=== PATIENT | female | born 1945 | race Caucasian/White ===

== ENCOUNTER 2018-03-29 09:12 | Emergency (ER) | payer OTHER ==
[~2018-03-29] VITALS: Ht 165.1 cm; Wt 104.3 kg
--- NOTE | ~2018-03-29 | EKG ---
[place] [address] [facility] [place] [address] ELECTROCARDIOGRAM REPORT Name: JAE CHAVEZ [facility] [id number] Admission: 03/29/18 Attend Phys: Discharge: 03/29/18 Date of : 45 Report #: [id number] THIS REPORT FOR: //name// [facility] ED Test Date: 2018-03-29 Test Time: 09:58:21 Pat Name: JAE CHAVEZ Department: Room: Gender: F Program Developer: Last CHIRINOS : 1945 Requested By: Agustín Juarez Order Number: [id number] MD: Lion Sweeney Measurements Intervals [place] Rate: 74 P: -12 VT: 199 QRS: -35 QRSD: 98 T: 136 QT: 410 QTc: 455 Interpretive Statements Sinus rhythm LVH with secondary repolarization abnormality Inferior infarct, old Anteroseptal infarct, possibly acute No previous ECG available for comparison Electronically Signed On 03-29-2018 11:37:53 CDT by Lion Sweeney [email or web address] <ELECTRONICALLY SIGNED> By: Lion Sweeney MD 03/29/18 [id number] Lion Sweeney MD /YANNICK
[2018-03-29 10:49] LABS: ABSOLUTE NEUTROPHILS 12.3 thou/uL (1.4-8.2); BASOPHILS 0.2 % (0.0-2.0); EOSINOPHILS 0.1 % (0.0-3.0); HEMATOCRIT 42.1 % (37.0-47.0); HEMOGLOBIN 14.2 gm/dL (12.0-15.0); LYMPHOCYTES 6.5 % (24.0-44.0); MCH 30.7 pg (26.0-34.0); MCHC 33.7 g/dL (28.0-37.0); MCV 91.2 fL (80.0-100.0); MONOCYTES 6.5 % (1.0-8.0); PLATELET COUNT 215 thou/uL (150-400); POLYS 86.7 % (36.0-66.0); RBC 4.62 mil/uL (4.20-5.00); RDW 13.2 % (10.5-14.5); WBC 14.2 thou/uL (4.0-11.0)
[2018-03-29] MEDS ORDERED: ZOFRAN ODT8 MG PO (10:50)
[2018-03-29] MEDS ORDERED: TRAMADOL 50 MG50 MG PO (10:50)
[2018-03-29 10:56] LABS: ANION GAP 8 mmol/L (7-16); BUN 13 mg/dL (7-18); CALCIUM 9.5 mg/dL (8.5-10.1); CHLORIDE 104 mmol/L (98-107); CO2 28 mmol/L (21-32); CREATININE 0.7 mg/dL (0.6-1.0); GLUCOSE 133 mg/dL (74-106); POTASSIUM 3.8 mmol/L (3.5-5.1); SODIUM 140 mmol/L (136-145)
[2018-03-29 11:05] LABS: ALBUMIN 3.8 g/dL (3.4-5.0); LIPASE 73 U/L (73-393); SGOT 19 U/L (15-37); SGPT 18 U/L (30-65); TOTAL BILIRUBIN 0.7 mg/dL (<0.1-1.0); TROPONIN-I < 0.04 ng/mL (<0.06)
[2018-03-29 11:26] VITALS: BP 136/78
== END 2018-03-29 11:26 | disposition home or self-care (01) ==
LOC: ER 09:12
PROVIDERS: Emergency Medicine
DX: K56.41 Fecal impaction (principal); R19.7 Diarrhea, unspecified; R11.2 Nausea with vomiting, unspecified; R94.31 Abnormal electrocardiogram [ECG] [EKG]

== ENCOUNTER → 2018-05-12 | Outpatient (CLI) | payer OTHER ==
[~2018-05-12] VITALS: Ht 165.1 cm; Wt 103.0 kg
[~2018-05-12] MED LIST: TRAMADOL 50 MG50 MG PO; ZOFRAN ODT8 MG PO
--- NOTE | ~2018-05-12 | EKG ---
[place] [address] [facility] [place] [place] [address] ELECTROCARDIOGRAM REPORT Name: JAE CHAVEZ Room #: [facility]#: [id number] Admission: 05/12/18 Attend Phys: Lion Sweeney MD Discharge: Date of : 45 Report #: [id number] THIS REPORT FOR: //name// [facility] Test Date: 2018-05-12 Test Time: 11:29:22 Pat Name: JAE CHAVEZ Department: Room: Gender: F [employer] Promotional Sales: LETHA : 1945 Requested By: Lion Sweeney Order Number: [id number] MD: Gilbert Oshea Measurements Intervals [place] Rate: 70 P: 2 VA: 221 QRS: -40 QRSD: 103 T: 137 QT: 415 QTc: 448 Interpretive Statements Sinus rhythm Prolonged VA interval LVH with secondary repolarization abnormality Inferior infarct, old Septal infarct, age indeterminate Compared to ECG 03/29/2018 09:58:21 No significant change was found Electronically Signed On 05-12-2018 13:01:15 CDT by Gilbert Oshea [email or web address] <ELECTRONICALLY SIGNED> By: Gilbert Oshea MD, [facility] 05/12/18 1301 1129 1129 Gilbert Oshea MD, [facility] /EPI
--- NOTE | ~2018-05-12 | CATHLAB ---
[facility] [place] [address] INVASIVE PROCEDURE REPORT Name: JAE CHAVEZ Room #: [facility]#: [id number] Admission: 05/12/18 Attend Phys: Lion Sweeney MD Discharge: Date of : 45 Date of Service: 05/12/18 1501 Report #: [id number] THIS REPORT FOR: //name// APPROVED REPORT Study performed: 05/12/2018 12:01:47 Patient Details Patient Status: Out-Patient Room #: The patient is a 72 year-old female Event Personnel Lion Sweeney Car Whacker, Estela Blandon RTR, JUNIOR SALES ASSISTANT Monitor, Ector Hawkins RN RN, Barry Lucas Tharp, Cori RN cloth washer operator Performed Art Access - R femoral artery* Left Heart Cath w/or w/o Coronaries 0490714 C 36325 Initial Mod Sed Same Phys/QHP Gr5y 484747 Hemostasis with Manual pressure 14681 Mod Sed Same Phys/QHP Ea 937021 Indication Dyspnea, Positive stress test Risk Factors HypercholesterolemiaPhysical Activity Procedure Narrative The Right Groin^ was infiltrated with 1% Lidocaine subcutaneous anesthesia. A PINNACLE 4FR Sheath #[id number] sheath was inserted into the RFA^. Coronary angiography was performed using coronary diagnostic catheters. The right coronary system was accessed and visualized with a JR4 catheter. The left coronary system was accessed and visualized with a JL4 catheter. The left ventricle was accessed and visualized with a Pigtail catheter. Left ventricular/Aortic Valve gradient assessed via catheter pullback. Left ventriculogram was performed in 30 degree projection. Hemostasis was obtained with manual pressure following sheath removal without any complications. The patient tolerated the procedure well and there were no complications associated with the procedure. There was no hematoma. Intraoperative Conscious Sedation Sedation start time: 12:35 Case end Time: [facility] [place] [address] INVASIVE PROCEDURE REPORT Name: JAE CHAVEZ Room #: [facility]#: [id number] Admission: 05/12/18 Attend Phys: Lion Sweeney MD Discharge: Date of : 45 Date of Service: 05/12/18 1501 Report #: [id number] 13:11 Fentanyl 50 mcg Versed 1.5 mg Fluoro Time: 6.21 minutes Dose: DAP 9859.60 cGycm2 1113 mGy Contrast Type and Amount: Omnipaque 110 ml Coronary Angiography The patient's coronary anatomy is right dominant. Diagnostic Cath Left Main Patent vessel, with no flow-limiting lesions. LAD Moderate to large caliber vessel, traveling down the anterior wall and wrapping around the apex. There is mild disease in the proximal segment, 30%. Diagonal 1 Moderate size caliber vessel, patent with no flow-limiting lesions. Circumflex Moderate to large size caliber vessel, supplies 2 obtuse marginal arteries. There is mild disease in the proximal segment, 20%. OM1 Patent vessel, with no flow-limiting lesions. OM2 Patent vessel, with no flow-limiting lesions. Right Coronary Dominant vessel with a severe stenosis at the ostium, 70%. R PDA Patent vessel, with no flow-limiting lesions. Left Ventriculography The left ventricle is normal in size with normal contractility. The left ventricular ejection fraction is estimated to be 50-55%. There is mild hypokinesis of the mid to basal inferior segment. Hemodynamics The aortic pressure is 144/76 mmHg with a mean of 103 mmHg. The left ventricular pressure is 250/23 mmHg with a mean of mmHg. The left ventricular end diastolic pressure is 35 mmHg. Conclusion 1. Severe aortic stenosis, diagnosed with echo. Peak gradient of approximately 85 mmHg detected on ventriculography. 2. Mild disease in LAD and LCx. [facility] [address] [place] [address] INVASIVE PROCEDURE REPORT Name: JAE CHAVEZ Room #: [facility]#: [id number] Admission: 05/12/18 Attend Phys: Lion Sweeney MD Discharge: Date of : 45 Date of Service: 05/12/18 1501 Report #: [id number] 3. Severe ostial RCA stenosis. 4. Recommend CV consultation. <ELECTRONICALLY SIGNED> By: Lion Sweeney MD 05/12/18 1501 150 150 Lion Sweeney MD /INF
[2018-05-12 10:58] VITALS: BP 143/76
[2018-05-12 11:13] LABS: HEMATOCRIT 43.7 % (37.0-47.0); HEMOGLOBIN 15.3 gm/dL (12.0-15.0); MCH 31.4 pg (26.0-34.0); MCV 89.7 fL (80.0-100.0); RBC 4.87 mil/uL (4.20-5.00); RDW 12.6 % (10.5-14.5); WBC 6.1 thou/uL (4.0-11.0)
[2018-05-12 11:44] LABS: CALCIUM 9.4 mg/dL (8.5-10.1); CREATININE 0.7 mg/dL (0.6-1.0); POTASSIUM 3.9 mmol/L (3.5-5.1)
== END | disposition home or self-care (01) ==
LOC: CATH 10:26
PROVIDERS: Internal Medicine Cardiovascular Disease
DX: I25.10 Atherosclerotic heart disease of native coronary artery without angina pectoris (principal); I35.0 Nonrheumatic aortic (valve) stenosis; E78.00 Pure hypercholesterolemia, unspecified; G47.33 Obstructive sleep apnea (adult) (pediatric); E66.09 Other obesity due to excess calories; Z98.890 Other specified postprocedural states; Z98.0 Intestinal bypass and anastomosis status; Z79.899 Other long term (current) drug therapy; Z85.048 Personal history of other malignant neoplasm of rectum, rectosigmoid junction, and anus; Z82.49 Family history of ischemic heart disease and other diseases of the circulatory system

== ENCOUNTER 2019-12-03 14:17 | Inpatient (IN) | payer OTHER ==
[~2019-12-03] VITALS: Ht 152.4 cm; Wt 105.5 kg
[2019-12-03 14:18] VITALS: BP 204/91
[2019-12-03 15:37] LABS: HEMATOCRIT 39.5 % (37.0-47.0); HEMOGLOBIN 12.9 gm/dL (12.0-15.0); MCH 29.9 pg (26.0-34.0); MCHC 32.6 g/dL (28.0-37.0); MCV 91.6 fL (80.0-100.0); PLATELET COUNT 140 thou/uL (150-400); RBC 4.31 mil/uL (4.20-5.00); RDW 13.8 % (10.5-14.5); WBC 4.1 thou/uL (4.0-11.0)
[2019-12-03 15:52] LABS: CALCIUM 8.7 mg/dL (8.5-10.1); CREATININE 0.7 mg/dL (0.6-1.0); POTASSIUM 3.6 mmol/L (3.5-5.1)
[2019-12-03 16:01] LABS: TROPONIN-I 0.06 ng/mL (<0.06)
[2019-12-03 16:30] LABS: ABSOLUTE NEUTROPHILS 2.7 thou/uL (1.4-8.2); ANISOCYTOSIS 1+; POLYCHROMASIA OCCASIONAL
[2019-12-03 18:27] VITALS: BP 132/67
--- NOTE | 2019-12-03 18:27 | NUR ---
FIRST ATTEMPT TO CALL REPORT 182
[2019-12-03 18:30] LABS: FOLIC ACID 19.4 ng/mL (8.6-58.9); TSH 2.451 uIU/mL (0.358-3.740)
[2019-12-03 19:26] VITALS: BP 141/76
--- NOTE | 2019-12-03 19:37 | NUR ---
SECOND ATTEMPT TO CALL REPORT AT 193
[2019-12-03 19:42] VITALS: BP 152/72
[2019-12-03 20:30] VITALS: BP 132/59
[2019-12-04 00:45] VITALS: BP 115/44
[2019-12-04 04:30] VITALS: BP 144/65
--- NOTE | 2019-12-04 05:29 | NUR ---
PATIENTS CARES WERE ASSUMED AT SHIFT CHANGE. PATIENT WAS ASSESSED AND MEDS WERE PASSED. PATIENT IS VERY ENGAGING ANDCAME IN DUE TO SHE WAS FEARFUL FOR HERSELF HOME ALONE. SHE STATED SHE BECAME SHORT OF BREATH AND AT TINES THOUGHT SHE WAS GOING TO FINT. TREATMENT IS TO GIVE LASIX B.I.D. TREATMENT IS WORKING WELL. ROUNDS WERE DONE. THE BED IS IN A LOW ADN LOCKED POSITION
[2019-12-04 07:28] VITALS: BP 105/59
--- NOTE | 2019-12-04 08:02 | EKG ---
[facility] [place] [address] ELECTROCARDIOGRAM REPORT Name: JAE CHAVEZ Room #: 208-P ADM IN M.R.#: [id number] Admission: 12/03/19 Attend Phys: Kedar Rojas MD Discharge: Date of : 45 Report #: [id number] THIS REPORT FOR: cc: Sebas Stewart MD, Neal A. 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: TITI : 1945 Requested By: Astrid Bonilla Order Number: [id number] MD: Gilbert Oshea Measurements Intervals [place] Rate: 86 P: 184 KS: 61 QRS: -32 QRSD: 104 T: 154 QT: 385 QTc: 461 Interpretive Statements Sinus rhythm Probable left atrial enlargement LVH with secondary repolarization abnormality Inferior infarct, old Poor R wave progression Compared to ECG 05/12/2018 11:29:22 No significant change was found Electronically Signed On 12-04-2019 8:01:13 [employer] HEATER by Gilbert Oshea [email or web address] <ELECTRONICALLY SIGNED> By: Gilbert Oshea MD, FAC 12/04/19 0801 1501 1501 Gilbert Oshea MD, FAC /EPI
[2019-12-04 08:41] LABS: HEMATOCRIT 39.1 % (37.0-47.0); MCH 30.2 pg (26.0-34.0); MCHC 33.4 g/dL (28.0-37.0); MCV 90.4 fL (80.0-100.0); PLATELET COUNT 150 thou/uL (150-400); RBC 4.32 mil/uL (4.20-5.00); RDW 13.8 % (10.5-14.5); WBC 4.5 thou/uL (4.0-11.0)
[2019-12-04 08:55] LABS: CHOLESTEROL 177 mg/dL (<200); HDL CHOLESTEROL 43 mg/dL (>40); LDL CHOLESTEROL 121 mg/dL (<100); TC:HDL 4.1 Ratio (Not establshd); TRIGLYCERIDE 68 mg/dL (<150); VLDL 14 mg/dL (<40)
[2019-12-04 09:01] LABS: CALCIUM 8.7 mg/dL (8.5-10.1); CREATININE 0.8 mg/dL (0.6-1.0); MAGNESIUM 1.7 mg/dL (1.8-2.4); POTASSIUM 3.5 mmol/L (3.5-5.1); TROPONIN-I 0.11 ng/mL (<0.06)
[2019-12-04 09:31] LABS: NUCLEATED RBCS 1 /100WBC; PLATELET ESTIMATE NORMAL
[2019-12-04 11:39] VITALS: BP 124/66
--- NOTE | 2019-12-04 15:03 | NUR ---
AAOX4. DIURESING. STILL SOB WITH MINIMAL EXERTION. O2 PER PROTOCOL. DR. MATHUR HERE, STARTS HER ON IV ANTIBIOTICS. LABS NOTED. SR PER TELE. WILL CONTINUE TO FOLLOW CLOSELY.
--- NOTE | 2019-12-04 16:33 | 2DMMODE ---
[facility] [place] [address] 2 D/M-MODE ECHOCARDIOGRAM Name: JAE CHAVEZ Room #: 208-P ADM IN M.R.#: [id number] Admission: 12/03/19 Attend Phys: Kedar Rojas MD Discharge: Date of : 45 Report #: [id number] THIS REPORT FOR: cc: Sebas Stewart MD, Neal A. MD Lammoglia, Francisco J. MD ~ APPROVED REPORT Study performed: 12/04/2019 15:34:44 EXAM: Comprehensive 2D, Doppler, and color-flow Echocardiogram Patient Location: Bedside Room #: 208 Status: routine BSA: 2.01 HR: 90 bpm BP: 124/66 mmHg Rhythm: NSR Other Information Study Quality: Adequate Indications Aortic Valve Disease Congestive Heart Failure Mitral Valve Disease Atrial Fibrillation 2D Dimensions LVOT Diam: 18.95 (18-24mm) IVC: 18.00 mm Volumes Left Atrial Volume (Systole) Single Plane 4CH: 124.74 mL Single Plane 2CH: 116.56 mL LA ESV Index: 65.00 mL/m2 Aortic Valve AoV Peak Bartolome.: 5.17 m/s AO Peak Gr.: 107.10 mmHg LVOT Max P.97 mmHg AO Mean Gr.: 66.17 mmHg LVOT Mean P.73 mmHg AO V2 Mean: 3.72 m/s LVOT Max V: 1.41 m/s AO V2 VTI: 113.70 cm LVOT Mean V: 1.01 m/s JEEVAN (VTI): 0.81 cm2 LVOT V1 VTI: 32.78 cm [facility] [address] [place] [address] 2 D/M-MODE ECHOCARDIOGRAM Name: JAE CHAVEZ Room #: 208-P [facility] IN .R.#: [id number] Admission: 12/03/19 Attend Phys: Rosy Malcolm Discharge: Date of : 45 Report #: [id number] JEEVAN Vmax: 0.77 cm2 SV (LVOT): 92.40 mL Mitral Valve MV Peak Gr.: 13.60 mmHg MV Mean Gr.: 7.90 mmHg E/A Ratio: 1.1 MV Decel. Time: 318.50 ms MV E Max Bartolome.: 1.74 m/s MV A Bartolome.: 1.62 m/s MV Max Bartolome.: 1.84 m/s MV Mean Bartolome.: 1.29 m/s MV VTI: 466.21 mm MVA VTI: 198.19 mm2 MV PHT: 92.37 ms MVA (PHT): 1.34 cm2 IVRT: 55.36 ms Pulmonary Valve PV Peak Bartolome.: 0.99 m/s PV Peak Gr.: 3.92 mmHg Pulmonary Vein P Vein S: 0.28 m/s P Vein A: 0.33 m/s P Vein D: 0.22 m/s P Vein A Dur.: 106.1 msec P Vein S/D Ratio: 1.27 Tricuspid Valve TR Peak Bartolome.: 3.06 m/s TR Peak Gr.: 37.51 mmHg PA Pressure: 48.00 mmHg Left Ventricle The left ventricle is normal size. There is normal LV segmental wall motion. Mild to moderate concentric left ventricular hypertrophy. The left ventricular systolic function is normal. The left ventricular ejection fraction is within the normal range. LVEF is 60-65%. The left ventricular diastolic function is abnormal. Right Ventricle The right ventricle is normal size. The right ventricular systolic function is normal. Atria Left atrium is dilated. Right atrium is dilated. Aortic Valve The aortic valve is normal in structure. Aortic valve is calcified. [facility] [address] [place] [address] 2 D/M-MODE ECHOCARDIOGRAM Name: JAE CHAVEZ Room #: 208-P [facility] IN [facility]#: [id number] Admission: 12/03/19 Attend Phys: Rosy Malcolm Discharge: Date of : 45 Report #: [id number] Trace aortic regurgitation. Severe aortic stenosis. Mitral Valve The mitral valve is normal in structure. There is mitral annular calcification. Mitral valve leaflets are calcified. Mitral valve leaflets have restricted excursion. Mild mitral regurgitation. Moderate mitral stenosis. Tricuspid Valve The tricuspid valve is normal in structure. There is mild tricuspid regurgitation. Estimated PAP 48 mmHg. There is moderate pulmonary hypertension. Pulmonic Valve The pulmonary valve is normal in structure. Trace to mild pulmonic regurgitation. Great Vessels The aortic root is normal in size. IVC is normal in size and collapses <50% with inspiration. Pericardium There is no pericardial effusion. <Conclusion> The left ventricle is normal size. LVEF is 60-65%. Left atrium is dilated. Right atrium is dilated. The aortic valve is normal in structure. Aortic valve is calcified. Severe aortic stenosis Trace aortic regurgitation. The mitral valve is normal in structure. There is mitral annular calcification. Mitral valve leaflets are calcified. Mitral valve leaflets have restricted excursion. Mild mitral regurgitation. Moderate mitral stenosis. The tricuspid valve is normal in structure. There is mild tricuspid regurgitation. Estimated PAP 48 mmHg. There is moderate pulmonary hypertension. The pulmonary valve is normal in structure. [address] [address] 2 D/M-MODE ECHOCARDIOGRAM Name: JAE CHAVEZ Room #: 208-P ADM IN [facility]#: [id number] Admission: 12/03/19 Attend Phys: Rosy Malcolm Discharge: Date of : 45 Report #: [id number] Trace to mild pulmonic regurgitation. There is no pericardial effusion. <ELECTRONICALLY SIGNED> By: Dwight Lopez MD 12/04/19 1632 [id number] Dwight Lopez MD /INF
[2019-12-04 16:52] VITALS: BP 102/44
--- NOTE | 2019-12-04 17:03 | NUR ---
Met with patient who admits with CHF. Patient resides in [facility]. All needs on one level. 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 She cont to drive. She does not wear oxygen at home but in process of weaning and hopes to be off oxygen soon. Patient with no hx of HH or DME. PCP Dr Stewart. patient hopes to dc home with no needs. She has supportive family. Casemgt following for dc planning.
[2019-12-04 20:15] VITALS: BP 114/62
[2019-12-05 04:20] LABS: CALCIUM 8.8 mg/dL (8.5-10.1); CREATININE 0.6 mg/dL (0.6-1.0); POTASSIUM 3.5 mmol/L (3.5-5.1)
[2019-12-05 04:55] VITALS: BP 135/60
--- NOTE | 2019-12-05 04:55 | NUR ---
ASSUME CARE 190. PT/VITALS STABLE. DENIES ANY PAIN. UP WITH MILD ASSISTANCE AND WALKER. TOLERATES ACTIVITY WELL. COLOSTOMY BAG NOTED. PT INDICATES SHE MANAGES BAG BY SELF. NO DISTRESS NOTED THROUGH THE NIGHT. SR ON MONITOR. PROGRESSING WELL WITH POC. ASSESSMENT CHARTED. PLANNIS TO CONITNUE DIURESING PATIENT AND BREATHING TREATMENTS TO IMPROVE PULMONARY FUNCTION. WILL CONTINUE TO FOLLOW WITH POC
[2019-12-05 07:55] VITALS: BP 117/53
[2019-12-05 11:35] VITALS: BP 111/51
[2019-12-05 16:30] VITALS: BP 118/59
--- NOTE | 2019-12-05 20:22 | NUR ---
ASSUMMED PT CARE AT APPROXIMATELY 0700. PT A&O X4. ASSESSMENT CHARTED FALL PRECAUTIONS IN PLACE. PT DENIES HAVING CHEST PAIN. PT STATED SHE HAD SOB ON EXERSION. PRN BREATHING TREATMENT ORDERED. O2 SAT STABLE. PT DENIES HAVING ACUTE PAIN. PT TITRATED OFF O2. O2 SAT STABLE. EDUCATED PT AND PT'S FAMILY ABOUT POC. PT AND PT'S FAMILY STATED UNDERSTANDING AND DENIED HAVING FURTHER QUESTIONS. PT STATED SHE STARTED HAVING BURNING WHEN URINATING. INFORMED DR. MATHUR. UA ORDERED. PT COMFORTABLE IN BED. PT DENIES HAVING FURTHER CONCERNS. VITAL SIGNS STABLE. BLOOD SUGARS STABLE.
[2019-12-05 20:35] VITALS: BP 116/61
[2019-12-06 00:07] LABS: URINE BILIRUBIN NEGATIVE (Negative); URINE BLOOD 1+ (Negative); URINE CLARITY CLEAR; URINE COLOR YELLOW; URINE GLUCOSE-RANDOM* NEGATIVE (Negative); URINE KETONES NEGATIVE (Negative); URINE LEUKOCYTES NEGATIVE (Negative); URINE NITRITE NEGATIVE (Negative); URINE PROTEIN (DIPSTICK) NEGATIVE (Negative); URINE UROBILINOGEN 0.2 E.U./dl (0.2-1.0)
[2019-12-06 00:19] LABS: BACTERIA None Seen /HPF (None Seen); CASTS None Seen /LPF (None Seen); CRYSTALS None Seen /LPF (None Seen); MUCUS None Seen strn/LPF (None Seen); SQUAMOUS None Seen /LPF (0-3); URINE RBC 0-2 Rare /HPF (0-2); URINE WBC None Seen /HPF (0-5)
[2019-12-06 05:15] VITALS: BP 108/61
--- NOTE | 2019-12-06 05:19 | NUR ---
Uneventful night. Pt slept well. Denies pain. Oriented x 4. VSS. Afebrile. O2 2L NC w/ activity. Lungs w/ bibasilar crackles. Lasix IV BID. Tolerating po. Voiding frequently. Plan of care reviewed and updated as able. Pt progressing towards discharge goals.
[2019-12-06 05:43] LABS: CALCIUM 9.4 mg/dL (8.5-10.1); CREATININE 0.7 mg/dL (0.6-1.0); POTASSIUM 3.4 mmol/L (3.5-5.1)
--- NOTE | 2019-12-06 07:43 | NUR ---
Long discussion with patient as son re: code status. Pt would like to talk to re: DNR status. She has a living will and her intention is that she would not want to be kept alive on life support if there was no change for a meaningful recovery. She does not want to remain on life support if it is not short term. Report given to Ector HOPPER.
[2019-12-06 07:45] VITALS: BP 115/71
[2019-12-06 11:10] VITALS: BP 120/61
[2019-12-06 16:25] VITALS: BP 120/76
--- NOTE | 2019-12-06 18:37 | NUR ---
AAOX4. CALM, COOPERATIVE. BRIGHT AFFECT. DENIES PAIN. STILL DIURESING. SHOWERS HERSELF. APPETITE BRISK. STATES SHE IS SLEEPING, BREATHING, AND FEELING BETTER. SR WITH AVB PER TELE. WILL CONTINUE TO FOLLOW CLOSELY.
[2019-12-07 05:28] VITALS: BP 116/62
[2019-12-07 07:55] VITALS: BP 109/62
[2019-12-07 11:50] VITALS: BP 118/65
[2019-12-07 15:25] VITALS: BP 110/40; BP 120/65
--- NOTE | 2019-12-07 17:28 | NUR ---
ASSUMED CARE PT SHIFT CHANGE. ASSESSMENTS CHARTED. MEDS GIVEN PER DEC. PT ALERT AND ORIENTED. VSS. SON IN ROOM WITH PT MAJORITY OF DAY. PT DIURESING APPROPRIATELY. TOLERATING WELL. C/O PAIN - MANAGED WITH PO PAIN MEDS. O2 SATS WNL, DENYING OF SOB/CP. PT CURRENTLY IN CHAIR EATING DINNER DENYING OF NEEDS. WILL CONT TO MONITOR.
[2019-12-07 20:50] VITALS: BP 105/52
--- NOTE | 2019-12-08 05:23 | NUR ---
PATIENT CONTINUES TO BE A PLEASENT LADY. SHE HAS REFUSED ALL ACCU CHECKS AND INSULIN. PATIENT CONTINUES TO QUESTION THE ANTIBIOTICS SHE IS ON. PATIENT HAS SLEPT MOST OF THIS SHIFT. SON IS AT THE BED SIDE. HOURLY ROUNDING WAS DONE. THE BED IS IN A LOW AND LOCKED POSITION
[2019-12-08 05:25] VITALS: BP 136/88
[2019-12-08 05:33] LABS: HEMATOCRIT 39.1 % (37.0-47.0); HEMOGLOBIN 12.9 gm/dL (12.0-15.0); MCH 30.1 pg (26.0-34.0); MCHC 32.9 g/dL (28.0-37.0); MCV 91.4 fL (80.0-100.0); RBC 4.27 mil/uL (4.20-5.00); RDW 13.3 % (10.5-14.5); WBC 8.3 thou/uL (4.0-11.0)
[2019-12-08 06:53] LABS: ALBUMIN 3.3 g/dL (3.4-5.0); CALCIUM 8.8 mg/dL (8.5-10.1); CREATININE 0.7 mg/dL (0.6-1.0); PHOSPHORUS 3.4 mg/dL (2.5-4.9); POTASSIUM 3.7 mmol/L (3.5-5.1)
[2019-12-08 08:20] VITALS: BP 121/66
[2019-12-08 12:10] VITALS: BP 127/70
--- NOTE | 2019-12-08 14:36 | NUR ---
Nutrition: Pt admitted with acute respiratory failure, HTN. Seen due to BMI 45, extreme class 3 obesity. Pt reports relatively stable weights other than a 7# increase prior to admit related to fluid. On torsemide. Voices no diet related questions and states she has been following a heart healthy diet at home. No needs from RD voiced. Consider low nutrition risk at this time.
--- NOTE | 2019-12-08 15:58 | NUR ---
FAXED REFERRAL TO [facility] SPOKE WITH DELFINO IN INTAKE SHE RECEIVED REFERRAL AND CAN ACCEPT AT DC. DP TO FOLLOW.
[2019-12-08 16:05] VITALS: BP 96/63
--- NOTE | 2019-12-08 16:51 | NUR ---
Spoke at length with patient and son who were under impression of immediate transfer of patient to have TAVR. Dr De La Vega and Dr Naidu met with son and patient and discussed no need for immediate transfer. Son reports "why all of sudden is it not an immediate need." He reports phys and staff and cont to report once more stable planned transfer to /[facility] for TAVR. Dr De La Vega addressed with son. discussed dc tomorrow with HH care. Reviewed HH care. No prefernce for an agency, referral to [facility].
--- NOTE | 2019-12-08 18:27 | NUR ---
ASSUMMED PT CARE AT APPROXIMATELY 0700. PT A&O X4. ASSESSMENT CHARTED. FALL PRECAUTIONS IN PLACE. PT DENIES HAVING CHEST PAIN. PT DENIES HAVING ACUTE PAIN. PT STATES SHE BECOMES SOB ON EXERSION. PT O2 SAT STABLE. EDUCATED PT AND PT'S SON ABOUT POC. PT STATED UNDERSTANDING AND DENIED HAVING FURTHER QUESTIONS. PT STATED SHE DID NOT WANT TO HAVE CATH PROCEDURE. PT REFUSING TO HAVE BLOOD SUGARS CHECKED. VITAL SIGNS STABLE. PT AMBULATES STEADY. PT COMFORTABE. PT DENIES HAVING FURTHER CONCERNS.
[2019-12-08 21:48] VITALS: BP 124/78
[2019-12-09 04:03] VITALS: BP 125/64
--- NOTE | 2019-12-09 05:24 | NUR ---
PATIENTS CARES WERE ASSUMED AT SHIFT CHANGE. PATIENT WAS ASSESSED AND MEDS WERE PASSED.PATIENT IS LOOKING FORWARD TO GOING HOME AND HER PLAN IS TO FOLLOW UP WITH [facility]. PATIENTS SON MADE HER APPOINTMENT AT . SHE IS SHOWING IMPROVMENT. LUNGS ARE NOT CONGESTED WHEN SHE CAME IN. HOURLY ROUNDS WERE MADE. THE BED IS IN A LOW AND LOCKED POSITION.
[2019-12-09 05:41] LABS: HEMATOCRIT 39.5 % (37.0-47.0); MCH 29.7 pg (26.0-34.0); MCHC 32.8 g/dL (28.0-37.0); MCV 90.7 fL (80.0-100.0); RBC 4.36 mil/uL (4.20-5.00); RDW 13.6 % (10.5-14.5); WBC 6.2 thou/uL (4.0-11.0)
[2019-12-09 06:02] LABS: CREATININE 0.7 mg/dL (0.6-1.0); POTASSIUM 3.5 mmol/L (3.5-5.1)
[2019-12-09 06:11] VITALS: BP 127/73
[2019-12-09] MEDS ORDERED: K-DUR 20 MEQ T20 MEQ PO (08:12)
[2019-12-09] MEDS ORDERED: DEMADEX20 MG PO (08:12)
[2019-12-09 09:12] VITALS: BP 139/89
[2019-12-09] MEDS ORDERED: PROAIR HFA8.5 GM INH (09:45)
[2019-12-09] MEDS ORDERED: PREDNISONE 10 M10 M1 PO (09:45)
[2019-12-09 09:53] VITALS: BP 139/89
--- NOTE | 2019-12-09 11:32 | NUR ---
ASSUMMED PT CARE AT APPROXIMATELY 0700. PT A&O X4. ASSESSMENT CHARTED. FALL PRECAUTIONS IN PLACE. PT DENIES HAVING CHEST PAIN. PT DENIES HAVING SOB. PT DENIES HAVING ACUTE PAIN. PT DISCHARGING HOME C HOME HEALTH. PT AND PT'S FAMILY RECIEVED DISCHARGE EDUCATION. PT AND PT'S FAMILY STATED UNDERSTANDING AND DENIED HAVING FURTHER QUESTIONS. PT COMFORTABLE. PT AMBULATES STEADY/INDEPENDENT. VITAL SIGNS STABLE. PT REFUSED BLOOD SUGARS BEING CHECKED. PT RECIEVING HOSPITAL TRANSPORT OFF UNIT. PT DENIES HAVING FURTHER CONCERNS.
--- NOTE | 2019-12-09 13:30 | NUR ---
PT DISCHARGING TODAY TO HOME WITH [facility] FAXED DC ORDERS/SUMMARY SPOKE WITH DELFINO IN INTAKE ORDERS RECEIVED AND THEY WILL NOTIFY PT HEATH OF VISITS.
--- NOTE | 2019-12-18 13:18 | HC ---
[facility] [place] [address] CONSULTATION Name: JAE CHAVEZ Room #: 208-P [facility] M.R.#: [id number] Admission: 12/03/19 Attend Phys: Kedar Rojas MD Discharge: 12/09/19 Date of : 45 Report #: [id number] THIS REPORT FOR: cc: Sebas Stewart MD, Neal A. MD Lammoglia, Francisco J. MD ~ CC: Kedar Stewart DATE OF SERVICE: 12/03/2019 REASON FOR CONSULTATION: Congestive heart failure. HISTORY OF PRESENT ILLNESS: This is a very pleasant 74-year-old female patient apparently has a history of valvular heart disease, was recommended to have replacement several years ago when she elected not to proceed. The patient also has a history of sleep apnea and does not use her CPAP secondary to not being able to tolerate it according to the patient. She had been doing fairly well until 7-10 days ago where she started having shortness of breath. She stated that this was quite progressive and was associated with fever and cough, which she thought was flu-like prodrome. The patient felt in neck and axilla and noted that they seemed to be swollen and tried to take care of the issue with [id number] medications without improvement. She continued to progress with the shortness of breath, developing orthopnea. She subsequently got to the point where she was sitting up to be able to breathe comfortably and this concerned her and presented to the Emergency Room. Upon arrival in the Emergency Room, she was found to be in congestive heart failure with significant lower extremity edema. She has never had any DVTs in the past. She denies any history of heart failure in the past. PAST MEDICAL HISTORY: Significant for: 1. Valvular heart disease. 2. Sleep apnea syndrome. 3. Degenerative joint disease. 4. Obesity. 5. Peripheral neuropathy. PAST SURGICAL HISTORY: Significant for: 1. 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 2. Coronary artery disease with an abnormal stress test and catheterization demonstrated significant multivessel coronary artery disease. MEDICATIONS AT HOME: None. ALLERGIES: No known drug allergies. [facility] [address] [place] [address] CONSULTATION Name: JAE CHAVEZ Room #: 208-P [facility] ..#: [id number] Admission: 12/03/19 Attend Phys: Kedar Rojas MD Discharge: 12/09/19 Date of : 45 Report #: [id number] SOCIAL HISTORY: The patient does not smoke or consume alcohol, follow a particular dietary restriction or exercise regimen. REVIEW OF SYSTEMS: Except for symptoms previously mentioned and those commensurate with comorbid state, the 10-point review of system is negative. PHYSICAL EXAMINATION: GENERAL: Well-developed, well-nourished female, resting comfortably in no acute distress. HEENT: Normocephalic, atraumatic. Pupils are equal, round, reactive to light and accommodation. Extraocular muscles are intact. Sclerae and conjunctivae are anicteric. NECK: JVD is normal. Carotid upstrokes are bilaterally symmetrical. No bruits are heard. No thyromegaly. No lymphadenopathy. LUNGS: Dependent crackles are noted bilaterally. Tidal volume is decreased. CARDIAC: Demonstrates a grade 2-3/6 systolic murmur from the base of the notch and secondary murmur grade 2/6 from the base of the apex. ABDOMEN: Soft, nontender, nondistended. Normal bowel sounds. EXTREMITIES: Without cyanosis, clubbing or edema. Distal pulses are intact. DTR symmetrical. NEUROLOGIC: Cranial nerves 2-12 are grossly normal and symmetrical. PSYCHIATRIC: Alert, oriented with normal affect. SKIN: Warm and dry. IMPRESSION: 1. Congestive heart failure, etiology of which is likely secondary to left ventricular dysfunction. We will need to assess more fully as to the extent of dysfunctions we can optimize medical regimen. In addition to this she has valvular disease, I will discuss this below. 2. Valvular heart disease, need to get the echocardiogram to delineate whether we are dealing with pure aortic stenosis with LV dysfunction or combined mitral and aortic disease, so we can try and formulate the best option at this juncture. 3. Obstructive sleep apnea. Discussed with her at length the issues with increasing pulmonary pressures and not treating obstructive sleep apnea. She does voice understanding. We will continue optimization at the present time. 4. Coronary artery disease. The patient states that she had significant coronary artery disease, but elected not to proceed with anything done. She apparently has had a myocardial infarction x 2 in the past. <ELECTRONICALLY SIGNED> By: Dwight Lopez MD 12/18/19 1318 [id number] Dwight Lopez MD /nt
== END 2019-12-09 11:44 | disposition home health service (06) | DRG 291 ==
LOC: ER 14:17 → EROBS 17:12 → 2N 17:12 → ENTRNSPT 12-09 11:31 → EDTRNSPTSTS 12-09 11:39 → 2N 12-09 11:44
PROVIDERS: Emergency Medicine Emergency Medical Services; Hospitalist; Internal Medicine Pulmonary Disease; Nurse Practitioner; ADMIT Hospitalist
DX: I11.0 Hypertensive heart disease with heart failure (principal); I50.31 Acute diastolic (congestive) heart failure; J96.01 Acute respiratory failure with hypoxia; C20 Malignant neoplasm of rectum; C18.9 Malignant neoplasm of colon, unspecified; I38 Endocarditis, valve unspecified; Z68.42 Body mass index [BMI] 45.0-49.9, adult; M19.90 Unspecified osteoarthritis, unspecified site; G62.9 Polyneuropathy, unspecified; I35.0 Nonrheumatic aortic (valve) stenosis; G47.30 Sleep apnea, unspecified; I25.10 Atherosclerotic heart disease of native coronary artery without angina pectoris; I16.0 Hypertensive urgency; D69.6 Thrombocytopenia, unspecified; R79.89 Other specified abnormal findings of blood chemistry; Z66 Do not resuscitate; E66.9 Obesity, unspecified; G47.33 Obstructive sleep apnea (adult) (pediatric); R63.0 Anorexia; G47.00 Insomnia, unspecified; E78.5 Hyperlipidemia, unspecified; R50.9 Fever, unspecified; R59.9 Enlarged lymph nodes, unspecified; Z93.3 Colostomy status; Z95.1 Presence of aortocoronary bypass graft; I25.2 Old myocardial infarction; Z99.81 Dependence on supplemental oxygen; Z79.899 Other long term (current) drug therapy; Z28.21 Immunization not carried out because of patient refusal
CPT/HCPCS: 10081